=== PATIENT | male | born 1990 | race Two or more races ===

== ENCOUNTER 2024-06-01 14:49 | Emergency (ER) | payer SELFPAY | END 2024-06-01 15:57 | disposition home or self-care (01) | LOC: MW.ED 14:49 | DX: Z76.0 Encounter for issue of repeat prescription (principal); E10.9 Type 1 diabetes mellitus without complications; F17.210 Nicotine dependence, cigarettes, uncomplicated; Z79.4 Long term (current) use of insulin | CPT/HCPCS: 99281; 99283 ==